=== PATIENT | female | born 1960 | race Caucasian/White ===

== ENCOUNTER 2017-04-26 11:24 | Emergency (ER) | payer OTHER ==
[~2017-04-26] VITALS: Ht 170.2 cm; Wt 89.9 kg
[2017-04-26] MEDS ORDERED: NAPROSYN500 MG PO (12:04)
[2017-04-26] MEDS ORDERED: FLEXERIL10 MG PO (12:04)
[2017-04-26 12:16] VITALS: BP 147/74
== END 2017-04-26 12:17 | disposition home or self-care (01) ==
LOC: EME 11:24
DX: S16.1XXA Strain of muscle, fascia and tendon at neck level, initial encounter (principal); I10 Essential (primary) hypertension; K21.9 Gastro-esophageal reflux disease without esophagitis; M62.838 Other muscle spasm
CPT/HCPCS: 99281; 99283